=== PATIENT | female | born 2000 | race African-American/Black ===

== ENCOUNTER 2019-07-10 13:17 | Emergency (ER) | payer OTHER, SELFPAY ==
--- NOTE | ~2019-07-10 | XR_ITS ---
EXAMINATION: XR chest 2V 07/10/2019 15:32 INDICATION: Left upper quadrant pain. Shortness of breath. PROCEDURE: 2 view chest COMPARISON: 06/21/2019 FINDINGS: The lungs are clear. The cardiomediastinal silhouette is within normal limits. There are no pleural effusions. There is no pneumothorax suspected. IMPRESSION: 1: NO ACUTE CARDIOPULMONARY DISEASE. Reviewed, dictated and finalized at [facility]. Reviewed, dictated and finalized at [facility]
[2019-07-10 13:24] VITALS: BP 109/64; PULSE 88; RESP 20; TEMP 37.3; O2SAT 100
[2019-07-10 14:40] LABS: Add Urine Microscopic? YES; Appearance Urine Cloudy (Clear); Bacteria Urine Trace /hpf; Bilirubin Urine Negative (Negative); Blood Urine Negative (Negative); Color Urine Yellow (Yellow); Glucose Urine UA Negative (Negative); Ketones Urine Negative (Negative); Leukocyte Esterase Ur 2+ LEU/UL (Negative); Mucus Urine Heavy /lpf; Nitrate Urine Negative (Negative); Protein Urine Negative (Negative); Specific Grav Ur 1.023 (1.001-1.035); Squamous Epithelial Cell Urine Many /hpf (Few); Urobilinogen Urine Negative mg/dL (<2.0)
--- NOTE | 2019-07-10 14:59 | ED.GENADULT ---
HPI - General Adult General Chief complaint: Unspecified <Cliff Garcia PA-C - Last Filed: 07/10/19 16:57> Stated complaint: lower back pain, lightheaded and stuff <Cliff Garcia PA-C - Last Filed: 07/10/19 16:57> Time Seen by Provider: 07/10/19 14:58 <Cliff Garcia PA-C - Last Filed: 07/10/19 16:57> Source: patient <Cliff Garcia PA-C - Last Filed: 07/10/19 16:57> Mode of arrival: ambulatory <Cliff Garcia PA-C - Last Filed: 07/10/19 16:57> Limitations: no limitations <Cliff Garcia PA-C - Last Filed: 07/10/19 16:57> History of Present Illness HPI narrative: Patient is a 19-year-old female who presents with the acute low back pain that started today in the lumbar region bilaterally had an episode of emesis in the waiting room denies other complaints or symptoms other than may be a possible yeast infection with some irritation and white discharge from the vagina. <Cliff Garcia PA-C - Last Filed: 07/10/19 16:57> Related Data Home medications: Home Medications Medication Instructions Recorded Confirmed hydroxyzine HCl 07/10/19 <Cliff Garcia PA-C - Last Filed: 07/10/19 16:57> Allergies/adverse reactions: Allergies Allergy/AdvReac Type Severity Reaction Status Date / Time pneumococcal vaccine Allergy Unknown HIVES, Verified 07/10/19 14:53 FEVER <Cliff Garcia PA-C - Last Filed: 07/10/19 16:57> Review of Systems Review of Systems: All systems reviewed & are unremarkable except as noted in HPI and below <Cliff Garcia PA-C - Last Filed: 07/10/19 16:57> PMFSH Social History Social History: Social History (Updated 07/10/19 @ 16:22 by Cliff Garcia PA-C) Smoking status: Never smoker <Cliff Garcia PA-C - Last Filed: 07/10/19 16:57> Exam Narrative: Exam Narrative: GENERAL: Well-appearing, well-nourished, and in no acute distress. HEAD: Normocephalic, atraumatic. EYES: PERRLA and EOMI. ENT: Nares clear, no rhinorrhea or epistaxis. Mucous membranes moist. Oropharynx without tonsillar hypertrophy exudate or other lesions. NECK: Supple. No adenopathy or masses. CHEST: Clear to auscultation. No respiratory distress. No wheezes rales or rhonchi HEART: Regular rate and rhythm. No murmur heard. Normal peripheral pulses. ABDOMEN: Soft, mild tenderness in the left upper abdomen, nondistended FEMALE GENITOURINARY: Frothy white vaginal discharge otherwise unremarkable EXTREMITIES: Normal range of motion. No edema. SKIN: Warm, dry, no rash. NEURO: No focal deficits. Alert and oriented x3. Cranial nerves II through XII grossly intact PSYCH: Normal mood and affect. <GERARD Garcia Last Filed: 07/10/19 16:57> Course Course Emergency Course: Patient in the room in no distress aware of case findings treatment plan and diagnosis agreeing to follow-up as directed or to return if symptoms worsen or concerns <GERARD Garcia Last Filed: 07/10/19 16:57> Vital Signs Vital signs: Vital Signs Temperature 37.3 C 07/10/19 13:24 Pulse Rate 88 07/10/19 13:24 Respiratory Rate 20 07/10/19 13:24 Blood Pressure 109/64 07/10/19 13:24 Pulse Oximetry 100 07/10/19 13:24 Temperature 37.3 C 07/10/19 13:24 Pulse Rate 88 07/10/19 13:24 Respiratory Rate 20 07/10/19 13:24 Blood Pressure 109/64 07/10/19 13:24 Pulse Oximetry 100 07/10/19 13:24 <GERARD Garcia Last Filed: 07/10/19 16:57> Vital Signs Temperature 37.3 C 07/10/19 13:24 Pulse Rate 88 07/10/19 13:24 Respiratory Rate 20 07/10/19 13:24 Blood Pressure 109/64 07/10/19 13:24 Pulse Oximetry 100 07/10/19 13:24 Temperature 37.3 C 07/10/19 13:24 Pulse Rate 88 07/10/19 13:24 Respiratory Rate 20 07/10/19 13:24 Blood Pressure 109/64 07/10/19 13:24 Pulse Oximetry 100 07/10/19 13:24 <Elian Wakefield MD - Last Filed: 07/10/19 17:23> Medical Dec
[2019-07-10] MEDS: SODIUM CHLORIDE 0.9% IV 1,000 ML 999 ML IV CONT (15:47)
[2019-07-10] MEDS: ONDANSETRON INJ 4 MG/2 ML VIAL IV PUSH (15:48)
[2019-07-10] MEDS: FAMOTIDINE 20 MG/2 ML VIAL IV PUSH (15:49)
[2019-07-10 15:56] LABS: Basophils Percent Auto 0.2 % (0.2-1.2); Eosinophils Percent Auto 0.4 % (0-4.4); Hematocrit 39.7 % (37.0-47.0); Hemoglobin 12.8 g/dL (12.0-15.0); Immature Granulocyte Absolute 0.03 K/mm3 (0.00-0.031); Immature Granulocyte Percent A 0.4 % (0-0.5); Lymphocytes Absolute Auto 1.66 K/mm3 (0.9-3.2); Lymphocytes Percent Auto 20.4 % (18.3-44.2); Mean Corpuscular HGB Conc 32.2 g/dl (32-36); Mean Corpuscular Hemoglobin 29.8 pg (26-34); Mean Corpuscular Volume 92.3 fl (80-100); Mean Platelet Volume 8.9 fl (7.4-10.4); Monocytes Absolute Auto 0.5 K/mm3 (0.1-0.6); Monocytes Percent Auto 5.8 % (2.6-8.5); Neutrophils Absolute Auto 5.9 K/mm3 (1.3-6.7); Neutrophils Percent Auto 72.8 % (45.5-73.1); Platelet Count Result 232 k/mm3 (150-375); Red Cell Distribution Width 12.6 % (11.5-14.5); White Blood Count 8.1 K/mm3 (4.5-10.0)
--- NOTE | 2019-07-10 16:15 | PC.NURSE ---
Pelvic exam done per [facility] student, with this RN in attendance. Pt tolerated procedure well. Speciman's collected as ordered and sent to lab.
[2019-07-10 16:17] LABS: Alanine Aminotransferase 14 U/L (4-35); Albumin Level 4.6 g/dL (3.5-5.1); Alkaline Phosphatase 31 U/L (38-126); Aspartate Amino Transferase 33 U/L (14-36); Bilirubin,Total 0.4 mg/dL (0.2-1.3); Blood Urea Nitrogen 8 mg/dL (7-17); Calcium 9.2 mg/dL (8.4-10.2); Carbon Dioxide 23 mmol/L (22-30); Chloride 105 mmol/L (98-107); Estimated CRCL calculation 109 ml/min; Estimated Glomerular Filt Rate > 60; Glucose 85 mg/dL (65-105); Lipase 165 U/L (23-300); Potassium 3.9 mmol/L (3.4-5.0); Sodium 138 mmol/L (137-145)
[2019-07-10 17:45] VITALS: BP 121/75; PULSE 90; RESP 16; O2SAT 100
== END 2019-07-10 17:45 | disposition home or self-care (01) ==
PROVIDERS: Emergency Medicine Emergency Medical Services; General Practice; Emergency Provider Family Medicine
DX: M54.5 Low back pain (principal)
CPT/HCPCS: 36415; 71046; 80053; 81001; 81025; 83690; 85025; 87070; 87491; 87591; 87804; 87808; 96361; 96365; 96375; 99284; J0131; J2405; J7030